=== PATIENT | male | born 1990 | race Two or more races ===

== ENCOUNTER 2022-03-11 08:00 | Outpatient (CLI) | payer OTHER | END 2022-03-11 08:05 | disposition home or self-care (01) | LOC: PPH VACUNA 08:00 | PROVIDERS: ATTEND Emergency Medicine Pediatric Emergency Medicine | DX: Z23 Encounter for immunization (principal) ==

== ENCOUNTER 2022-03-19 10:32 | Outpatient (CLI) | payer OTHER | END 2022-03-19 10:37 | disposition home or self-care (01) | LOC: PPH VACUNA 10:32 | PROVIDERS: ATTEND Emergency Medicine Pediatric Emergency Medicine | DX: Z23 Encounter for immunization (principal) ==

== ENCOUNTER 2022-12-14 12:30 | Outpatient (CLI) | payer OTHER | END 2022-12-14 12:31 | disposition home or self-care (01) | LOC: LAB 12:30 | PROVIDERS: ATTEND Anesthesiology | DX: Z01.812 Encounter for preprocedural laboratory examination (principal); Z02.1 Encounter for pre-employment examination ==

== ENCOUNTER → 2023-03-03 | Outpatient (CLI) | payer OTHER | END | disposition home or self-care (01) | LOC: PPH VACUNA | PROVIDERS: ATTEND Emergency Medicine Pediatric Emergency Medicine | DX: Z23 Encounter for immunization (principal) ==

== ENCOUNTER → 2023-07-22 06:11 | Outpatient (CLI) | payer OTHER ==
[2023-07-22 07:06] LABS: HEMATOCRIT 41.5 % (39.0-48.0); HEMOGLOBIN 14.5 g/dL (13-16.00); MEAN CELL VOLUME 85.4 fL (80.0-100.00); MEAN CORPUSCULAR HEMOGLOBIN 29.9 pg (27.00-32.0); PLATELET COUNT 236 K/uL (150-450); RED BLOOD COUNT 4.87 M/uL (4.00-6.00); RED CELL DISTRIBUTION WIDTH 13.7 % (11.5-14.5)
[2023-07-22 08:04] LABS: BILIRUBIN TOTAL 1.01 mg/dL (0.3-1.2); CALCIUM 9.6 mg/dL (8.5-10.1); CHOL HDL RATIO 3.8 (0-5.0); CREATININE SERUM 1.06 mg/dL (0.70-1.30); GFR 82.03; GLOBULINA 3.4 G/DL (2.4-3.5); POTASSIUM 4.15 mEq/L (3.5-5.1); TOTAL PROTEIN 7.4 gm/dL (6.4-8.2)
== END | disposition home or self-care (01) ==
LOC: LAB 06:11
PROVIDERS: ATTEND Anesthesiology
DX: Z01.89 Encounter for other specified special examinations (principal)

== ENCOUNTER 2024-01-03 08:43 | Outpatient (CLI) | payer OTHER | END 2024-01-03 08:47 | disposition home or self-care (01) | LOC: LAB 08:43 | PROVIDERS: ATTEND Preventive Medicine Occupational Medicine | DX: J11.1 Influenza due to unidentified influenza virus with other respiratory manifestations (principal); Z20.828 Contact with and (suspected) exposure to other viral communicable diseases ==